=== PATIENT | male | born 1945 | race Caucasian/White ===

== ENCOUNTER 2017-01-24 21:23 | Emergency (ER) | payer MEDICARE, OTHER ==
[2017-01-24 22:16] LABS: CHLORIDE,CL 99 mmol/L (98-107); SODIUM,NA 135 mmol/L (136-145)
--- NOTE | 2017-01-24 22:25 | EDM.PDOC ---
ED HPI HEAD INJURY - General Chief Complaint: Head Injury Stated Complaint: Head injury and intoxication Time Seen by Provider: 01/24/17 21:26 Source of Information: Reports: Patient, EMS, Police History Limitations: Reports: No limitations, Intoxication - History of Present Illness INITIAL COMMENTS - FREE TEXT/NARRATIVE: Patient comes in today with EMS service after being picked up by local police. Patient states she's been drinking today. He knows he at least 6 beers. He is not sure when he had his last drink. He fell and hit the occiput of his head. He is not sure if he lost consciousness. No one saw him fall. He is not on blood thinners. He has no other complaints. 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 [Unable to Verify Home Med List] 04/06/14 [History] Social & Family History - Tobacco Use Years of Tobacco use: 50 Used Tobacco, but Quit: No - Alcohol Use Days Per Week of Alcohol Use: 0 - Recreational Drug Use Recreational Drug Use: No ED ROS GENERAL - Review of Systems Review Of Systems: ROS reveals no pertinent complaints other than HPI. ED EXAM, HEAD INJURY - Physical Exam Exam: See Below Exam Limited By: Intoxication General Appearance: alert, WD/WN, no apparent distress Head: normocephalic, scalp abrasions Nexus Criteria: No: posterior, midline cervical tenderness, evidence of intoxication, altered level of consciousness, focal neurological deficit, painful distracting injuries Eyes: bilateral eye: EOMI, normal inspection, PERRL Ears: normal external exam, normal canal, hearing grossly normal, normal TMs Nose: normal inspection, normal mucousa, no blood Throat/Mouth: Normal inspection, Normal lips, Normal teeth, Normal gums, Normal oropharynx, Normal voice, No airway compromise Neck: non-tender, full range of motion, normal alignment, normal inspection Respiratory: no respiratory distress, lungs clear, normal breath sounds, no accessory muscle use, chest non-tender Cardiovascular: normal peripheral pulses, regular rate, rhythm, no edema, no gallop, no JVD, no murmur, no rub GI/Abdominal Exam (Abbreviated): normal bowel sounds, soft, non tender, no organomegaly, no distention, no abnormal bruit, no mass Back Exam: full range of motion, normal inspection, NT Extremities: no evidence of injury, normal range of motion, non-tender, no pedal edema, pelvis stable 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, no motor/sensory deficits, alert, normal mood/affect Skin: Normal color, Warm/dry - Gab Coma Score Best Eye Response ([place]): (4) open spontaneously Best Verbal Response ([place]): (5) oriented Best Motor Response (Gab): (6) obeys commands Course - Orders/Labs/Meds Orders: Active Orders 24 hr Category Date Time Status Head wo Cont [CT] Stat Exams 01/24/17 21:37 Taken Labs: Laboratory Tests 01/24/17 01/24/17 Range/Units 21:52 21:52 WBC 7.0 (4.0-10.0) x10^3/uL RBC 4.21 L (4.5-6.0) x10^6/uL Hgb 13.3 L (14.0-18.0) g/dL Hct 39.3 L (40.0-52.0) % MCV 93.3 H (78.0-93.0) fL MCH 31.6 (26.0-32.0) pg MCHC 33.8 (32.0-36.0) g/dL RDW Coeff of [place] 13.1 (10.0-15.0) % Plt Count 217 (130-400) x10^3/uL Neut % (Auto) 55.2 (50.0-80.0) % Lymph % (Auto) 33.0 (25.0-50.0) % [place] % (Auto) 9.2 (2.0-11.0) % Eos % (Auto) 1.6 (0.0-4.0) % Baso % (Auto) 1.0 (0.2-1.2) % Sodium 135 L (136-145) mmol/L Potassium 3.8 (3.5-5.1) mmol/L Chloride 99 (98-107) mmol/L Carbon Dioxide 24 (21-32) mmol/L BUN 18 (7-18) mg/dL Creatinine 1.1 (0.70-1.30) mg/dL Est Cr Clr Drug Dosing TNP Estimated GFR (MDRD) > 60 Glucose 308 H (74-106) mg/dL Calcium 8.7 (8.5-10.1) mg/dL Ethyl Alcohol 205 H (0-3) mg/dL - Radiology Interpretation Free Text/Narrative:: No fracture to the skull or bleeding within the brain or meninges. CT Results Date: 01/24/17 CT Results Time: 22:20 Departure - Departure Time of Disposition: 22:35 (Patient to detox with police.) Disposition: DC/Tfer to Other 70 Condition: good Clinical Impression: Intoxication Head injury Qualifiers: Encounter type: initial encounter Qualified Code(s): S09.90XA - Unspecified injury of head, initial encounter Instructions: Head Injury, Adult - My Orders Last 24 Hours: My Active Orders 01/24/17 21:37 Head wo Cont [CT] Stat - Assessment/Plan Last 24 Hours: My Active Orders 01/24/17 21:37 Head wo Cont [CT] Stat Assessment:: Head injury Alcohol intoxication Plan: 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
[2017-01-25 01:07] VITALS: BP 138/78
== END 2017-01-24 22:55 | disposition home or self-care (01) ==
LOC: VM.ED 21:23
DX: S09.90XA Unspecified injury of head, initial encounter (principal); F10.129 Alcohol abuse with intoxication, unspecified; W22.8XXA Striking against or struck by other objects, initial encounter; Y92.89 Other specified places as the place of occurrence of the external cause; Z88.0 Allergy status to penicillin
CPT/HCPCS: 36415; 70450; 80048; 85025; 99284; G0480; 99283-GF

== ENCOUNTER 2025-05-07 22:28 | Inpatient (IN) | payer MEDICARE, MEDICAID ==
[2025-05-07 22:46] LABS: PLATELET COUNT,PLT 287 x10^3/uL (130-400); RED BLOOD CELL COUNT 4.01 x10^6/uL (4.5-6.0)
[2025-05-07 22:49] LABS: WHITE BLOOD CELL COUNT,WBC 24.3 x10^3/uL (4.0-10.0)
[2025-05-07] MEDS: Lactated Ringers 1,000 ML IV ONE (22:57)
[2025-05-07 23:04] LABS: A/G RATIO 0.43; ALANINE AMINOTRANSFERASE,ALT 11.0 U/L (16-63); ASPARTATE AMNIOTRANSFERASE,AST 12.0 U/L (15-37); BILIRUBIN TOTAL 0.5 mg/dL (0.2-1.0); CARBON DIOXIDE,CO2 20.0 mmol/L (21-32); CHLORIDE,CL 107.0 mmol/L (98-107); EST CRCL DRUG DOSING (CG) 15.83 mL/min; GLUCOSE RANDOM 327.0 mg/dL (70-99); POTASSIUM,K 4.7 mmol/L (3.5-5.1); PROTEIN TOTAL,TP 8.0 g/dL (6.4-8.2); SODIUM,NA 144.0 mmol/L (136-145)
[2025-05-07 23:08] LABS: LYMPHOCYTES ABSOLUTE MAN 0.5 x10^3/uL (1.0-4.8); LYMPHOCYTES PERCENT MAN 2 % (25-50); MONOCYTES ABSOLUTE MAN 1.0 x10^3/uL (0.0-0.8); MONOCYTES PERCENT MAN 4 % (2-11); NEUTROPHILS ABSOLUTE MAN 22.8 x10^3/uL (1.8-7.7); SEG NEUTROPHILS PERCENT MAN 94 % (50-80)
[2025-05-07 23:10] LABS: ESTIMATED GFR 17.0 mL/min (>=60)
[2025-05-07 23:11] LABS: BLOOD UREA NITROGEN,BUN 76.0 mg/dL (7-18); CREATININE 3.5 mg/dL (0.70-1.30)
[2025-05-08] MEDS ORDERED: Ondansetron 4 MG/2 ML SDV IV PRN (01:19)
[2025-05-08 05:15] LABS: BASE EXCESS ARTERIAL,POC -13 mmol/L ((-2)-3); HCO3 ARTERIAL,POC 11.7 mmol/L (21-28); O2 SATURATION ARTERIAL,POC 91.0 % (94-98); PCO2 ARTERIAL,POC 19 mmHg (35-48); PH ARTERIAL,POC 7.39 pH (7.35-7.45); PO2 ARTERIAL,POC 59 mmHg (83-108); TCO2 ARTERIAL,POC 11.0 mmol/L (22-29)
[2025-05-08] MEDS: VANCOmycin 1.25 GM/250 ML 1.25 GM in Premix Bag 1 BAG IV ONE (05:17)
[2025-05-08] MEDS: Heparin Sodium 5,000 Units/ML Vial SUBCUT SCH (05:52)
[2025-05-08 06:56] LABS: CORONAVIRUS COVID-19 NAA NEGATIVE (NEGATIVE); INFLUENZA A NAA NEGATIVE (NEGATIVE); INFLUENZA B NAA NEGATIVE (NEGATIVE)
[2025-05-08 06:57] LABS: PLATELET COUNT,PLT 249 x10^3/uL (130-400); RED BLOOD CELL COUNT 3.92 x10^6/uL (4.5-6.0)
[2025-05-08 06:58] LABS: WHITE BLOOD CELL COUNT,WBC 21.1 x10^3/uL (4.0-10.0)
[2025-05-08 07:01] LABS: CARBON DIOXIDE,CO2 21.0 mmol/L (21-32); CHLORIDE,CL 110.0 mmol/L (98-107); EST CRCL DRUG DOSING (CG) 14.32 mL/min; GLUCOSE RANDOM 396.0 mg/dL (70-99); POTASSIUM,K 4.8 mmol/L (3.5-5.1); SODIUM,NA 145.0 mmol/L (136-145)
[2025-05-08 07:02] LABS: ESTIMATED GFR 16.0 mL/min (>=60)
[2025-05-08 07:03] LABS: BLOOD UREA NITROGEN,BUN 77.0 mg/dL (7-18); CREATININE 3.7 mg/dL (0.70-1.30)
[2025-05-08 07:08] LABS: BAND PERCENT MAN 3 % (0-6); LYMPHOCYTES ABSOLUTE MAN 0.4 x10^3/uL (1.0-4.8); LYMPHOCYTES PERCENT MAN 2 % (25-50); MONOCYTES ABSOLUTE MAN 1.3 x10^3/uL (0.0-0.8); MONOCYTES PERCENT MAN 6 % (2-11); NEUTROPHILS ABSOLUTE MAN 19.4 x10^3/uL (1.8-7.7); PLATELET COUNT ESTIMATE ADEQUATE; SEG NEUTROPHILS PERCENT MAN 89 % (50-80)
[2025-05-08] MEDS: Ipratropium 0.02% 0.5 MG/2.5 ML Neb Soln INH SCH (08:59)
[2025-05-08] MEDS: Morphine Oral Concentrate 20 MG/ML 30 ML Bottle SL PRN ×2 (09:22→11:08)
[2025-05-08] MEDS: LORazepam 2 MG/ML SDV IV PRN (09:56)
[2025-05-08 11:53] VITALS: BP 128/59; PULSE 114
[2025-05-08] MEDS ORDERED: LORazepam 2 MG/ML SDV IV PRN (15:33)
[2025-05-08] MEDS ORDERED: Morphine Oral Concentrate 20 MG/ML 30 ML Bottle SL PRN (15:36)
[2025-05-08] MEDS: Morphine Oral Concentrate 20 MG/ML 30 ML Bottle SL SCH (15:43)
[2025-05-08] MEDS ORDERED: Haloperidol Lactate 2 MG/ML Oral Soln 15 ML Bottle SL PRN (15:43)
[2025-05-08] MEDS ORDERED: Hyoscyamine 0.125 MG/ML Bottle SL PRN (15:45)
[2025-05-08] MEDS ORDERED: LORazepam Conc Solution 2 MG/ML 30 ML Bottle SL PRN (15:47)
[2025-05-08] MEDS ORDERED: Ondansetron 4 MG Tab.DIS PO PRN (15:49)
[2025-05-09] MEDS: LORazepam Conc Solution 2 MG/ML 30 ML Bottle SL SCH (01:06)
== END 2025-05-08 20:00 | disposition expired | DRG 871 ==
LOC: VM.ED 22:28 → SUPCPDRO 22:28 → VM.MS 23:40
PROVIDERS: ADMIT Internal Medicine; ATTEND Internal Medicine
PROC: 3E03329 Introduction of Other Anti-infective into Peripheral Vein, Percutaneous Approach (ICD-10-PCS; principal; 2025-05-07)
PROC: 4A033R1 Measurement of Arterial Saturation, Peripheral, Percutaneous Approach (ICD-10-PCS; 2025-05-07)
DX: A41.50 Gram-negative sepsis, unspecified (principal); G93.41 Metabolic encephalopathy; N39.0 Urinary tract infection, site not specified; N17.9 Acute kidney failure, unspecified; Z51.5 Encounter for palliative care; Z66 Do not resuscitate; E78.00 Pure hypercholesterolemia, unspecified; E11.51 Type 2 diabetes mellitus with diabetic peripheral angiopathy without gangrene; J44.9 Chronic obstructive pulmonary disease, unspecified; G30.9 Alzheimer's disease, unspecified; F02.80 Dementia in other diseases classified elsewhere, unspecified severity, without behavioral disturbance, psychotic disturbance, mood disturbance, and anxiety; N18.9 Chronic kidney disease, unspecified; E11.22 Type 2 diabetes mellitus with diabetic chronic kidney disease; I12.9 Hypertensive chronic kidney disease with stage 1 through stage 4 chronic kidney disease, or unspecified chronic kidney disease; Z79.52 Long term (current) use of systemic steroids; Z88.0 Allergy status to penicillin; Z89.612 Acquired absence of left leg above knee; Z89.611 Acquired absence of right leg above knee; Z87.891 Personal history of nicotine dependence; Z79.82 Long term (current) use of aspirin; Z79.4 Long term (current) use of insulin; Z79.2 Long term (current) use of antibiotics; Z79.899 Other long term (current) drug therapy
CPT/HCPCS: 36415; 36600; 70450; 71045; 80048; 80053; 80202; 82803; 82947; 83605; 84484; 85025; 86140; 87040; 87077; 87186; 87636; 94760; 96361; 96374; 99223; 99239; 99284; 99285-25; A9270-GY; J0696; J1644; J2060; J3372; J7030; J7120